=== PATIENT | male | born 1975 | race Caucasian/White ===

== ENCOUNTER → 2017-02-01 | Outpatient (CLI) | payer OTHER ==
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
== END | disposition home or self-care (01) ==
LOC: RAD 15:16
PROVIDERS: ATTEND Physician Assistant
DX: M46.82 Other specified inflammatory spondylopathies, cervical region (principal); V89.2XXA Person injured in unspecified motor-vehicle accident, traffic, initial encounter; Y93.89 Activity, other specified; Y92.89 Other specified places as the place of occurrence of the external cause; Y99.8 Other external cause status
CPT/HCPCS: 72050

== ENCOUNTER → 2018-12-06 | Outpatient (CLI) | payer OTHER ==
--- NOTE | 2018-12-06 12:47 | KCIC ---
MR of the left knee HISTORY: Left knee injury 5 days ago. TECHNIQUE: Routine multiplanar sequences are obtained. FINDINGS: Degenerative tear of the medial meniscus. No evidence of lateral meniscal tear. Anterior and posterior cruciate ligaments are intact. Medial collateral ligament intact. Iliotibial band unremarkable. Fibular collateral ligament, biceps femoris tendon and popliteus tendon are intact. Extensor mechanism is intact. Trace joint effusion. Severe chondral loss at the weightbearing medial femoral condyle with mild subchondral marrow edema. No acute fracture. No aggressive bone destruction. Small Perry's cyst. Mild subcutaneous edema along the anteromedial knee. IMPRESSION: 1. Medial meniscal tear. 2. Medial femoral condyle chondromalacia. Electronically signed by: Tray Blas MD (12/06/2018 12:45 PM) [id number]
== END | disposition home or self-care (01) ==
LOC: KCIC MRI 07:39
PROVIDERS: ATTEND Internal Medicine
DX: S83.242A Other tear of medial meniscus, current injury, left knee, initial encounter (principal); M25.462 Effusion, left knee; M71.22 Synovial cyst of popliteal space [Baker], left knee; M94.262 Chondromalacia, left knee; X58.XXXA Exposure to other specified factors, initial encounter; Y93.89 Activity, other specified; Y92.89 Other specified places as the place of occurrence of the external cause; Y99.8 Other external cause status
CPT/HCPCS: 73721